=== PATIENT | male | born 1940 | race Caucasian/White ===

== ENCOUNTER → 2018-08-12 | Outpatient (CLI) | payer OTHER | LOC: M.MRI 16:30 | DX: I67.82 Cerebral ischemia (principal); I65.23 Occlusion and stenosis of bilateral carotid arteries; I65.1 Occlusion and stenosis of basilar artery; I65.02 Occlusion and stenosis of left vertebral artery; R90.82 White matter disease, unspecified; J34.1 Cyst and mucocele of nose and nasal sinus; I63.9 Cerebral infarction, unspecified; Z68.27 Body mass index [BMI] 27.0-27.9, adult ==